=== PATIENT | male | born 1940 | race Caucasian/White ===

== ENCOUNTER 2016-12-01 08:37 | Inpatient (IN) | payer OTHER ==
[~2016-12-01] VITALS: Ht 177.8 cm; Wt 148.0 kg
[2016-12-01] VITALS (8 sets, daily range): BP systolic 83–153; BP diastolic 57–76
[~2016-12-01 08:37] MED LIST: ADULT LOW DOSE81 M1 PO; ADVAIR 500/501 DISK IH; CADUET; DIOVAN; EX-LAX MAXIMUM25 MG PO; FUROSEMIDE80 MG PO; GLUCOPHAGE500 MG PO; GLYBURIDE; K-DUR20 MEQ PO; LANTUS 3 M100 UNITS1 SC; LEXAPRO; LITE COAT ASPI325 M1 PO; LOSARTAN POTAS100 MG PO; MAGNESIUM400 M1 PO; METFORMIN HCL850 MG PO; METOLAZONE5 MG PO; MIRALAX255 GM PO; PRAVASTATIN SOD40 MG PO; PROAIR HFA8.5 GM IH; PROVENTIL,2.5 MG/3 M IH; SPIRIVA1 INHALATI IH; STOOL SOFTENER100 MG PO; ZOLOFT50 MG PO
[2016-12-01 09:01] LABS: BASE EXCESS -7.3 mEq/L (-3 to +3); BICARBONATE 22.8 mEq/L (22-26); CARBOXY HGB 2.5 % (0-5); COMMENTS - BLOOD GASES +C; DEVICE PB980; FI02 100 %; METHEMOGLOBIN 0.7 % (0-1.5); MODE NIV; PCO2 67 mm Hg (35-45); PO2 131 mm Hg (80-100); SITE LR +A
[2016-12-01 09:01] LABS: BASOPHIL COUNT 0.2 K/uL (0-0.1); EOSINOPHIL (%) 3.5 % (0-5); EOSINOPHIL COUNT 0.6 K/uL (0-0.3); HEMATOCRIT 43.6 % (38.0-50.0); IMMATURE GRANULOCYTE (%) 3.3 % (0.0-0.7); IMMATURE GRANULOCYTE COUNT 0.5 K/uL; INSTRUMENT ABS NEUTROPHIL CT 8.4 K/uL; LYMPHOCYTE COUNT 5.3 K/uL (1.0-2.8); MCH 29.2 PG (29.0-34.0); MCV 94.2 FL (86-99); MONOCYTE (%) 8.2 % (3-12); MONOCYTE COUNT 1.3 K/uL (0-0.8); NEUTROPHIL (%) 51.6 % (45-76); NEUTROPHIL COUNT 8.4 K/uL (1.8-6.4); PLATELET COUNT 213 K/uL (156-360); RBC DIS.WIDTH-CV 13.6 % (11.8-14.6); RBC DIS.WIDTH-SD 46.7 % (39-53); RED BLOOD COUNT 4.63 M/uL (4.00-5.50); WHITE BLOOD COUNT 16.2 K/uL (4.1-10.2)
[2016-12-01 09:02] LABS: PEEP 7 CM/H20; PRES. SUPPORT 12 CM/H2O; TOTAL RESP RATE 21 resp/min; pH 7.14 (7.35-7.45)
[2016-12-01 09:13] LABS: INTER. NORMALIZED RATIO 1.1; PROTHROMBIN TIME 11.6 SEC (10.2-12.9)
[2016-12-01 09:15] LABS: PTT 29.6 SEC (25-37)
[2016-12-01 09:22] LABS: TROP-I INTERPRETATION NEGATIVE; TROPONIN-I 0.05 ng/mL (0.0-0.30)
[2016-12-01 09:24] LABS: CHLORIDE 104 mEq/L (99-109); POTASSIUM 4.4 mEq/L (3.7-5.4); SODIUM 140 mEq/L (136-147)
[2016-12-01 09:27] LABS: GLUCOSE 325 mg/dL (70-99)
[2016-12-01 09:28] LABS: ANION GAP 17 MEQ/L (2-14); TOTAL BILIRUBIN 0.6 mg/dL (0.0-1.0)
[2016-12-01 09:30] LABS: ALKALINE PHOSPHATASE 120 IU/L (3-129); GFR ESTIMATE (CALCULATED) > 59 mL/min/
[2016-12-01 09:31] LABS: UREA NITROGEN (BUN) 13 mg/dL (9-23)
[2016-12-01 11:57] LABS: BASE EXCESS -0.7 mEq/L (-3 to +3); BICARBONATE 26.2 mEq/L (22-26); CARBOXY HGB 2.5 % (0-5); METHEMOGLOBIN 1.1 % (0-1.5)
[2016-12-01 11:58] LABS: COMMENTS - BLOOD GASES +C; DEVICE NC; O2 FLOW 4 L/MIN; PCO2 52 mm Hg (35-45); PO2 63 mm Hg (80-100); SITE RB; TOTAL RESP RATE 22 resp/min; pH 7.31 (7.35-7.45)
[2016-12-01] MEDS ORDERED: SYMBICORT60 INHALAT IH (12:11)
[2016-12-01] MEDS ORDERED: PLAVIX75 MG PO (12:20)
[2016-12-01] MEDS ORDERED: GLUCOTROL XL10 MG PO (12:21)
[2016-12-01 16:09] LABS: TROP-I INTERPRETATION NEGATIVE; TROPONIN-I 0.24 ng/mL (0.0-0.30)
[2016-12-01 16:13] LABS: METH RESISTANT S AUREUS PCR NEGATIVE (NEGATIVE)
[2016-12-01 16:15] LABS: PROBE CHECK PASS; SPECIMEN PROCESSING CONTROL PASS
[2016-12-01 16:38] LABS: POINT-OF-CARE METER ID UU14174217
[2016-12-01 21:36] LABS: TROP-I INTERPRETATION INDETERMINATE; TROPONIN-I 0.35 ng/mL (0.0-0.30)
[2016-12-01 22:23] LABS: POINT-OF-CARE METER ID UU14174217
[2016-12-02] VITALS (9 sets, daily range): BP systolic 123–148; BP diastolic 42–73
[2016-12-02 06:38] LABS: ANION GAP 8 MEQ/L (2-14); CHLORIDE 99 MEQ/L (99-109); GFR ESTIMATE (CALCULATED) > 59 mL/min/; GLUCOSE 266 mg/dL (70-99); POTASSIUM 4.5 MEQ/L (3.7-5.4); SAMPLE HEMOLYSIS CHECK 2; SAMPLE ICTERIC CHECK 0; SAMPLE LIPEMIA CHECK 0; SODIUM 136 MEQ/L (136-147)
[2016-12-02 06:57] LABS: HEMATOCRIT 34.1 % (38.0-50.0); MCH 30.9 PG (29.0-34.0); MCHC 33.4 G/DL (30.0-36.0); MCV 92.4 FL (86-99); RBC DIS.WIDTH-CV 13.6 % (11.8-14.6); RBC DIS.WIDTH-SD 46.5 % (39-53); RED BLOOD COUNT 3.69 M/uL (4.00-5.50); WHITE BLOOD COUNT 11.4 K/uL (4.1-10.2)
[2016-12-02 06:59] LABS: UREA NITROGEN (BUN) 24 mg/dL (9-23)
[2016-12-02 07:09] LABS: MEAN PLAT.VOLUME 11.6 uM^3 (9.0-12.4); PLAT.SUFFICIENCY DECREASED
[2016-12-02 07:13] LABS: PLATELET COUNT 136 K/uL (156-360)
[2016-12-02 07:42] LABS: Estimated Average Glucose 163 mg/dL (70-123); HEMOGLOBIN A1c (GLYCOHEMOGLOB) 7.3 % HGB (Below 5.7)
[2016-12-02 11:37] LABS: POINT-OF-CARE METER ID UU13113803
[2016-12-03 03:32] VITALS: BP 140/89
[2016-12-03 07:01] VITALS: BP 184/75
[2016-12-03 09:47] VITALS: BP 144/67
[2016-12-03 15:16] VITALS: BP 159/72
[2016-12-04 00:05] VITALS: BP 182/77
[2016-12-04 07:15] VITALS: BP 184/80
[2016-12-04 11:33] VITALS: BP 132/96
[2016-12-04] MEDS ORDERED: CARVEDILOL3.125 MG PO (12:34)
[2016-12-04] MEDS ORDERED: FUROSEMIDE40 MG PO (12:37)
[2016-12-04] MEDS ORDERED: LEVAQUIN500 MG PO (12:39)
== END 2016-12-04 15:20 | disposition home health service (06) | DRG 871 ==
LOC: EME 08:37 → EDOF 11:38 → 5EAST 11:38 → ENRESERV 11:42 → 4WEST 12:19 → ENRESERV 12:27 → 4WEST 14:29 → ENRESERV 12-02 08:53 → 5EAST 12-02 12:03 → ENPENDDIS 12-04 → 5EAST 12-04 15:20
PROVIDERS: Emergency Medicine; Hospitalist; Internal Medicine
PROC: 5A09357 Assistance with Respiratory Ventilation, Less than 24 Consecutive Hours, Continuous Positive Airway Pressure (ICD-10-PCS; principal; 2016-12-02)
DX: A41.9 Sepsis, unspecified organism (principal); J18.1 Lobar pneumonia, unspecified organism; I50.33 Acute on chronic diastolic (congestive) heart failure; J96.01 Acute respiratory failure with hypoxia; J44.1 Chronic obstructive pulmonary disease with (acute) exacerbation; J44.0 Chronic obstructive pulmonary disease with (acute) lower respiratory infection; Z68.42 Body mass index [BMI] 45.0-49.9, adult; J90 Pleural effusion, not elsewhere classified; R65.20 Severe sepsis without septic shock; I36.1 Nonrheumatic tricuspid (valve) insufficiency; I34.0 Nonrheumatic mitral (valve) insufficiency; E11.65 Type 2 diabetes mellitus with hyperglycemia; E66.01 Morbid (severe) obesity due to excess calories; E78.5 Hyperlipidemia, unspecified; I11.0 Hypertensive heart disease with heart failure; I25.10 Atherosclerotic heart disease of native coronary artery without angina pectoris; I44.7 Left bundle-branch block, unspecified; K59.00 Constipation, unspecified; G47.33 Obstructive sleep apnea (adult) (pediatric); I27.2 Other secondary pulmonary hypertension; I87.8 Other specified disorders of veins; Z79.4 Long term (current) use of insulin; Z85.820 Personal history of malignant melanoma of skin; Z99.89 Dependence on other enabling machines and devices; Z87.891 Personal history of nicotine dependence; Z95.2 Presence of prosthetic heart valve; Z91.14 Patient's other noncompliance with medication regimen; Z79.84 Long term (current) use of oral hypoglycemic drugs; I25.2 Old myocardial infarction; Z91.19 Patient's noncompliance with other medical treatment and regimen; Z99.81 Dependence on supplemental oxygen; Z83.3 Family history of diabetes mellitus; Z82.49 Family history of ischemic heart disease and other diseases of the circulatory system
CPT/HCPCS: 36600; 71010; 71020; 71250; 80048; 80048 91; 80053; 82803; 82948; 83036; 83605; 83880; 84443; 84484; 84999; 85025; 85027; 85610; 85730; 87040; 87070; 87205; 87641; 93005; 93306; 94002; 94640; 94640 76; 94660; 94799; 99202; 99281; 99285; J0330; J0456; J0696; J1650; J1815; J1940; J2920; J2930; J7050; J7512